=== PATIENT | female | born 1990 | race Caucasian/White ===

== ENCOUNTER 2021-05-24 21:54 | Observation (INO) ==
[2021-05-24] MEDS ORDERED: ONDANSETRON 4 MG/2 ML VIAL IV STA (22:54)
[2021-05-24] MEDS ORDERED: SODIUM CHLORIDE 0.9% 1,000 ML IV STA (22:54)
[2021-05-24] MEDS ORDERED: KETOROLAC 30 MG/1 ML VIAL IV STA (23:41)
[2021-05-24] MEDS ORDERED: HYDROmorphone 2 MG/1 ML VIAL IV STA (23:41)
[2021-05-24] MEDS ORDERED: KETOROLAC 30 MG/1 ML VIAL ONE (23:42)
[2021-05-24] MEDS ORDERED: HYDROmorphone 2 MG/1 ML VIAL ONE (23:43)
[2021-05-24 23:46] LABS: Bilirubin,Urine Negative (Negative); Blood, Urine Large mg/dL (Negative); Glucose,Urine (UA) Negative (Negative); Ketones,Urine Negative (Negative); Mucus,Urine Occasional /LPF (Occasional); Nitrite,Urine Negative (Negative); Protein,Urine 30 MG/DL; RBC,Urine 2232 /HPF (0-4); Urine Appearance CLEAR (Clear); Urine Color Red (Yellow); Urine Urobilinogen < 2.0 EU/DL (0.2-1.0)
[2021-05-24 23:49] LABS: Basophils # 0.1 10*3/uL (0.0-0.2); Basophils % 0.3 % (0.0-0.8); Eosinophils # 0.1 10*3/uL (0.0-0.87); Eosinophils % 0.7 % (0.00-10.9); Hematocrit 35.1 VOL% (35.7-47.0); Hemoglobin 11.5 GM/DL (12.0-16.0); Immature Granulocytes % 0.4 %; Immature Granulocytes Absolute 0.06 #; Lymphocytes # 2.3 10*3/uL (1.4-4.0); Lymphocytes % 15.7 % (21.3-54.2); Mean Corpuscular HGB Conc 32.8 GM/DL (32-36); Mean Corpuscular Volume 85.8 FL (87-102); Mean Platelet Volume 7.9 FL (9.6-12.0); Monocytes % 4.3 % (1.7-12.7); Neutrophils % 78.6 % (38.7-73.9); Platelet Count 281 T/CUMM (130-400); Red Blood Count 4.09 MC/CUMM (3.8-5.5); Red Cell Distribution Width 12.4 % (9.3-17.3); White Blood Count 14.8 T/CUMM (4-12)
[2021-05-25 00:02] LABS: PT Patient Result 10.9 SECS (10.5-12.0)
[2021-05-25 00:20] LABS: Alanine Aminotransferase 14 U/L (13-56); Albumin 4.1 G/DL (3.4-5.0); Alkaline Phosphatase 80 U/L (45-117); Aspartate Amino Transferase 12 U/L (0-37); Bilirubin,Total < 0.39 MG/DL (0.20-1.00); Blood Urea Nitrogen 17 MG/DL (7-18); Calcium 8.4 MG/DL (8.5-10.1); Carbon Dioxide 26 MMOL/L (21-32); Estimated Glom Filtration Rate 113 ML/MIN; Glucose 95 MG/DL (74-106); Osmolality,Calculated 276.7 MOS/KG (273-304); Potassium 3.8 MMOL/L (3.5-5.1); Sodium 138 MMOL/L (136-145); Total Protein 6.9 G/DL (6.4-8.2)
[2021-05-25] MEDS ORDERED: HYDROmorphone 2 MG/1 ML VIAL IV PRN (01:53)
[2021-05-25] MEDS ORDERED: KETOROLAC 30 MG/1 ML VIAL IV PRN (01:53)
[2021-05-25] MEDS ORDERED: BISACODYL 10 MG SUPP RECTAL PRN (01:53)
[2021-05-25] MEDS ORDERED: ACETAMINOPHEN 325 MG TABLET PO PRN (01:53)
[2021-05-25] MEDS ORDERED: MAGNESIUM HYDROXIDE SUSP 30 ML UDCUP PO PRN (01:53)
[2021-05-25] MEDS ORDERED: ONDANSETRON 4 MG/2 ML VIAL IV PRN (01:53)
[2021-05-25] MEDS ORDERED: IBUPROFEN 800 MG TABLET PO PRN (01:53)
[2021-05-25] MEDS ORDERED: SODIUM CHLORIDE 0.9% 1,000 ML IV SCH (01:53)
[2021-05-25] MEDS ORDERED: ESTROGENS(CONJ) 25 MG VIAL IV ONE (01:54)
[2021-05-25] MEDS ORDERED: LACTATED RINGERS 1,000 ML IV SCH (02:00)
[2021-05-25 02:32] LABS: Hematocrit 29.4 VOL% (35.7-47.0); Hemoglobin 9.5 GM/DL (12.0-16.0)
[2021-05-25 04:28] LABS: Basophils % 0.4 % (0.0-0.8); Eosinophils # 0.2 10*3/uL (0.0-0.87); Eosinophils % 1.4 % (0.00-10.9); Hematocrit 28.8 VOL% (35.7-47.0); Hemoglobin 9.3 GM/DL (12.0-16.0); Immature Granulocytes % 0.4 %; Immature Granulocytes Absolute 0.05 #; Lymphocytes # 2.2 10*3/uL (1.4-4.0); Lymphocytes % 19.3 % (21.3-54.2); Mean Corpuscular HGB Conc 32.3 GM/DL (32-36); Mean Corpuscular Volume 85.7 FL (87-102); Mean Platelet Volume 8.1 FL (9.6-12.0); Monocytes % 6.7 % (1.7-12.7); Neutrophils % 71.8 % (38.7-73.9); Platelet Count 208 T/CUMM (130-400); Red Blood Count 3.36 MC/CUMM (3.8-5.5); Red Cell Distribution Width 12.4 % (9.3-17.3); White Blood Count 11.3 T/CUMM (4-12)
[2021-05-25 08:48] LABS: Hematocrit 29.5 VOL% (35.7-47.0); Hemoglobin 9.6 GM/DL (12.0-16.0)
[2021-05-25] MEDS ORDERED: DOCUSATE SODIUM 100 MG CAPSULE PO SCH (09:00)
[2021-05-25] MEDS: ESTRADIOL 2 MG TABLET PO SCH ×2 (09:05→12:50)
[2021-05-25 11:17] VITALS: BP 120/50
== END 2021-05-25 12:55 | disposition home or self-care (01) ==
LOC: N.ED 21:54 → INTOOBSV 05-25 00:04 → N.EDINP 05-25 00:04 → N.OB 05-25 01:30
PROVIDERS: ADMIT Obstetrics & Gynecology; ATTEND Obstetrics & Gynecology